=== PATIENT | female | born 1995 | race Caucasian/White ===

== ENCOUNTER 2021-10-23 11:42 | Emergency (ER) | payer OTHER, SELFPAY ==
[2021-10-23 12:00] VITALS: BP 138/75; PULSE 99; RESP 18; TEMP 37.8; O2SAT 99; BMI 26.6
--- NOTE | 2021-10-23 12:19 | HMH.EDUTC ---
[facility] Disposition Clinical Impression: Maxillary sinusitis, acute Qualifiers: Recurrence: non-recurrent Qualified Code(s): J01.00 - Acute maxillary sinusitis, unspecified Cough Qualifiers: Cough type: acute Qualified Code(s): R05.1 - Acute cough Disposition: Home, Self-Care Condition on Discharge: Good Instructions: DI for Sinusitis, Cough Additional Instructions: Start antibiotic patient to take as ordered for a full length of time even if you feel better. Sinus infections do not get better overnight. It may take 2-3 days to notice much improvement so be sure to use conservative measures as discussed for symptoms. Flonase 1 spray each nostril daily to help with nasal congestion, sinus and ear pressure/information Increase fluids Humidifier/vaporizer as needed Tylenol and ibuprofen as needed for fever or pain. If symptoms do not improve or get worse return or be seen in the ER Follow-up with primary care this week Prescriptions: Benzonatate [Benzonatate 100mg cap] 100 mg PO BID PRN 7 Days #14 cap PRN Reason: Cough Transmission Status: Pending to [id number] Azithromycin [Zithromax 250mg tab] 250 mg PO DIRECTED #6 tab Transmission Status: Pending to [id number] Referrals: Kristopher Cisneros [Primary Care Provider] - Time of Disposition: 12:28 Medical Decision Making - Richi Inquiry Pt receiving controlled substance: No Vital Signs: 10/23/21 12:00 Temperature 100.1 F H Temperature Source Oral Pulse Rate [Right Brachial] 99 H Respiratory Rate 18 Blood Pressure [Right Arm] 138/75 Blood Pressure Mean [Right Arm] 96 Blood Pressure Source [Right Arm] Automatic Cuff Blood Pressure Position [Right Arm] Sitting 02 Sat by Pulse Oximetry 99 Oxygen Delivery Method Room Air [facility] HPI - General Chief complaint: Urgent Treatment Center Stated complaint: congestion Time Seen by Provider: 10/23/21 12:19 Mode of Arrival: Ambulatory Source of Information: Patient Limitations: No Limitations Description of Symptoms (Recalled from Triage Doc. by RN): PATIENT C/O COUGH, CONGESTION, SORE THROAT, AND FEVER SINCE MONDAY HEENT Symptoms (Recalled from RN notes): Yes Resp Symptoms (Recalled from RN notes): Yes Skin Symptoms (Recalled from RN notes): No MS Symptoms (Recalled from RN notes): No Functional Status (Recalled from RN notes): WNL - History of Present Illness Provider Complaint: 26 yr old female presnets for yellow/green sputum, cough,congestion, sore throat and body aches since monday. pt states on was seen at urgent care and tested for covid and flu and both were neg - Related Data Home Medications Medication Instructions Recorded Confirmed cholecalciferol (vitamin D3) 10 10 mcg PO DAILY 01/08/21 01/08/21 mcg (400 unit) capsule mecobalamin (vitamin B12) 1,000 1,000 mcg PO DAILY 01/08/21 01/08/21 mcg chewable tablet prenat.vits,adela,osb-kpms-dfoko 1 tab PO DAILY 01/08/21 01/08/21 zinc 50 mg tablet 50 mg PO DAILY 01/08/21 01/08/21 Previous Rx's Medication Instructions Recorded amoxicillin 250 mg capsule 250 mg PO BID 14 Days #28 cap 01/08/21 Azithromycin [Zithromax 250mg 250 mg PO DIRECTED #6 tab 10/23/21 tab] Benzonatate [Benzonatate 100mg 100 mg PO BID PRN 7 Days #14 cap 10/23/21 cap] Allergies Allergy/AdvReac Type Severity Reaction Status Date / Time No Known Allergies Allergy Verified 01/08/21 12:04 - Worker's Comp Is this a Worker's Comp case?: No [facility] History - Hepatitis A Screen Attestation statement:: This patient has been screened for Hepatitis A risk factors. I have reviewed the patient's past medical history: Yes Other Surgeries: Yes: No Previous Surgery - Social History Smoking Status: Never smoker Alcohol Intake: never Occupational Status: employed Family Hx:: Non-contributory ROS Obtained: Yes Systems reviewed as appropriate & no additional complaints - Constitutional Constitutional: Reports system
[2021-10-23 12:25] LABS: UTC Strep Screen (Rapid) Negative (Negative)
[2021-10-23 12:30] VITALS: BP 138/75; PULSE 99; RESP 18; TEMP 37.8; O2SAT 99
[2021-10-23 13:05] LABS: Adenovirus,PCR Not Detected (NotDetected); Bordetella Pertussis Not Detected (NotDetected); Chlamydophila Pneumoniae, PCR Not Detected (NotDetected); Coronavirus 19, PCR Not Detected (NotDetected); Coronavirus 229E Not Detected (NotDetected); Coronavirus NL63 Not Detected (NotDetected); Coronavirus OC43 Not Detected (NotDetected); Coronovirus HKU1,PCR Not Detected (NotDetected); Human Metapneumovirus Not Detected (NotDetected); Influenza A, PCR Not Detected (NotDetected); Influenza AH1, 2009 Not Detected (NotDetected); Influenza AH1, PCR Not Detected (NotDetected); Influenza AH3,PCR Not Detected (NotDetected); Influenza B, PCR Not Detected (NotDetected); Mycoplasma Pneumoniae, PCR Not Detected (NotDetected); Parainfluenza 1, PCR Not Detected (NotDetected); Parainfluenza 2, PCR Not Detected (NotDetected); Parainfluenza 3, PCR Not Detected (NotDetected); Parainfluenza 4, PCR Not Detected (NotDetected); Respiratory Syncytial Virus Not Detected (NotDetected); Rhinovirus/Enterovirus Not Detected (NotDetected)
== END 2021-10-23 12:36 | disposition home or self-care (01) ==
PROVIDERS: Emergency Provider Nurse Practitioner Family; PCP Family Medicine
DX: J01.00 Acute maxillary sinusitis, unspecified (principal); R05.9 Cough, unspecified
CPT/HCPCS: 87581; 87632; 87798; 87880; 99212; C9803; G0463; U0003; U0005